=== PATIENT | female | born 1960 | race African-American/Black ===

== ENCOUNTER 2016-09-06 04:54 | Emergency (ER) | payer OTHER ==
--- NOTE | ~2016-09-06 | CT71 ---
[facility] Service of [facility] RADIOLOGY TEXT RESULTS PATIENT: VISHAL SALAS LOCATION: SED : 58 UNIT #: [id number] AGE: [address]: Blanca George MD SEX: F ORDER DR: [id number] [address] [address] [id number] E MR#: [id number] Acc #: [id number] NAME: VISHAL SALAS : 1960 SEX: F STUDY DATE/TIME: 09/06/2016 5:32 UNIT: SED ROOM: STUDY DESCRIPTION: CT Head Wo Contrast Attending Physician: Blanca George M.D. Ordering Physician: Blanca George M.D. Primary Care Physician: Sloan Zurita A.P.R.N. MEDICAL IMAGING REPORT This report is preliminary unless electronic signature is present. EXAM CT scan of the head without contrast HISTORY Feeling dizzy with ears ringing and headaches for one month. TECHNIQUE This CT exam was performed with one or more of the following radiation dose reduction techniques: automatic exposure control, adjustment of mA and/or kV according to patient size, and iterative reconstruction. FINDINGS Axial noncontrast images were obtained from the skull base to the vertex. Ventricular size and configuration are normal. There is no evidence of acute infarct or hemorrhage. There are no extraaxial fluid collections. No mass lesion or mass effect is seen. There are no skull fractures. IMPRESSION Normal noncontrast head CT. Dictated by... Yair Urbina M.D. THIS IS AN ELECTRONICALLY VERIFIED REPORT Yair Urbina M.D. at 09/06/2016 9:10 PM DELANEY/mi TD: 09/06/2016 14:11 JOB #: [id number] MEDICAL [facility]AGING REPORT [facility] of [facility] RADIOLOGY TEXT RESULTS PATIENT: VISHAL SALSA LOCATION: SED : 58 UNIT #: [id number] AGE: [address]: Blanca George MD SEX: F ORDER DR: Page 1 of 1
[~2016-09-06 04:54] MED LIST: PRILOSEC20 M1 PO
[2016-09-06] MEDS ORDERED: ZESTORETIC 10-1 EAC1 PO (05:04)
[2016-09-06] MEDS ORDERED: PEPCID AC20 M2 PO (05:05)
== END 2016-09-06 05:53 | disposition home or self-care (01) ==
LOC: SED 04:54
DX: R51 Headache (principal); H93.19 Tinnitus, unspecified ear; I10 Essential (primary) hypertension; K21.9 Gastro-esophageal reflux disease without esophagitis; Z79.899 Other long term (current) drug therapy
CPT/HCPCS: 70450; 96372; 99284; J1100

== ENCOUNTER 2016-09-09 02:19 | Emergency (ER) | payer OTHER ==
--- NOTE | ~2016-09-09 | CR72 ---
[facility] A Service of [facility] RADIOLOGY TEXT RESULTS PATIENT: VISHAL SALAS LOCATION: [facility] : 58 UNIT #: [id number] AGE: [address]: Ruperto Clifton MD SEX: F ORDER DR: [id number] [facility] [address] [place], [place] [address] [id number] MR#: [id number] Acc #: [id number] NAME: VISHAL SALAS : 1960 SEX: F STUDY DATE/TIME: 09/09/2016 2:54 UNIT: [facility] ROOM: STUDY DESCRIPTION: CR Chest Single View Portable Attending Physician: Ruperto Clifton M.D. Ordering Physician: Ruperto Clifton M.D. Primary Care Physician: Sloan Zurita A.P.R.N. MEDICAL IMAGING REPORT This report is preliminary unless electronic signature is present EXAM Portable chest, 09/09. HISTORY Shortness of air starting today. COMPARISON 02/08/2012 FINDINGS A portable view of the chest was obtained. The heart size and vascularity are normal. The lungs are clear and the bones are unremarkable. IMPRESSION No active disease. Dictated by... Yair Urbina M.D. THIS IS AN ELECTRONICALLY VERIFIED REPORT Yair Urbina M.D. at 09/09/2016 1:31 PM DELANEY/sydnee TD: 09/09/2016 09:09 JOB #: [id number] MEDICAL IMAGING REPORT Page 1 of 1 COPY
--- NOTE | ~2016-09-09 | EKG ---
PATIENT: VISHAL SALAS UNIT #: [id number] Ventricular Rate: 75 BPM Atrial Rate: 75 BPM P-R Interval: 150 ms QRS Duration: 80 ms Q-T Interval: 396 ms QTC Calculation(Bezet): 442 ms P Mccarr: 75 degrees Calculated R Mccarr: 50 degrees Calculated T Mccarr: 24 degrees Diagnosis Line: Normal sinus rhythm Diagnosis Line: Normal ECG Diagnosis Line: No previous ECGs available Diagnosis Line: Confirmed by NENITA MARTINEZ MD ([id number]) on Diagnosis Line: 09/09/2016 9:05:59 AM INTERPRETING MD: MICHELLE ZUNIGA
[~2016-09-09 02:19] MED LIST changes: +PEPCID AC20 M2 PO; +ZESTORETIC 10-1 EAC1 PO
== END 2016-09-09 04:15 | disposition home or self-care (01) ==
LOC: CED 02:19
DX: F41.9 Anxiety disorder, unspecified (principal); R05 Cough; I10 Essential (primary) hypertension; K21.9 Gastro-esophageal reflux disease without esophagitis; Z98.890 Other specified postprocedural states; Z79.899 Other long term (current) drug therapy
CPT/HCPCS: 71010; 93005; 96374; 96375; 99285; J2060; J2930